=== PATIENT | male | born 1995 | race Caucasian/White ===

== ENCOUNTER 2019-09-19 13:29 | Emergency (ER) | payer OTHER ==
[~2019-09-19] VITALS: Ht 175.3 cm; Wt 79.4 kg
[~2019-09-19 13:29] MED LIST: ACETAMINOPHEN-120 ML PO; AMOXICILLIN 50500 M1 PO; AZITHROMYCIN 2250 MG PO; CONCERTA36 MG PO; DIPHENHIST50 MG PO; DOXYCYCLINE 10100 MG PO; GARAMYCIN5 M1 OP; IBUPROFEN 600600 M1; IBUPROFEN 600600 M1 PO; L-ARGININE500 MG; MEDROLDOSEPACK PO; NASONEX17 GM NS; NOHOMEMEDICATIONS; TRILEPTAL150 MG PO; VICODIN 5-5001 EACH PO; [UNRECOGNIZED DRUG - OTHER]
[2019-09-19 14:38] VITALS: BP 135/80
== END 2019-09-19 14:39 | disposition home or self-care (01) ==
LOC: ER 13:29
DX: S63.693A Other sprain of left middle finger, initial encounter (principal); F90.9 Attention-deficit hyperactivity disorder, unspecified type; Z88.8 Allergy status to other drugs, medicaments and biological substances; X58.XXXA Exposure to other specified factors, initial encounter; Y93.89 Activity, other specified; Y92.89 Other specified places as the place of occurrence of the external cause; Y99.8 Other external cause status